=== PATIENT | male | born 1990 | race Caucasian/White ===

== ENCOUNTER → 2019-08-07 11:45 | Outpatient (CLI) | payer SELFPAY ==
[2018-08-08 10:41] VITALS: BMI 28.8
[2019-08-07 12:02] VITALS: BP 111/75; PULSE 79; RESP 16; TEMP 36.3; O2SAT 96; BMI 28.0
--- NOTE | 2019-08-07 12:41 | HTC.HP3 ---
Problem List (1) Von Willebrand disease, type I Status: Acute Subjective Date of Service:: 08/07/19 Chief Complaint: F/u for VWD type 1 History of Present Illness: 29y.o.man with VWD type I, comes for follow up. Has had no bleeding in the last year. Health History: Past Medical History Past Medical History: Bleeding disorder Past Medical History (Last Updated 08/08/18 @ 10:40 by Jennifer Emanuel) Anxiety (Acute) Social History Social History: No changes Smoking Status Former smoker Allergies/Adverse Reactions: Allergy/AdvReac Type Severity Reaction Status Date / Time aspirin AdvReac Severe BLEEDING Verified 08/08/18 10:40 Risk Factors Social History Social History: No changes Smoking Status Former smoker Tobacco Risk Data: Tobacco Risk Smoking Status Former smoker Type of tobacco: Smokeless tobacco usage: Current Items/Day: Year started: Years used: 10 Counseled to quit/cut down: Reason for no counseling performed: Reason for no pharmacotherapy: Tobacco use comments: Passive smoke exposure: No Substance Risk Drug use: No Caffeine use [drinks/day]: Alcohol use: No Type of alcohol: Drinks per day: Has patient felt the need to cut down: Has the patient been annoyed by complaints: Has the patient felt guilty about drinking: 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: Comments: Review of Systems Constitutional:: Denies: Fever, Sweats, Weight loss, Appetite change, Chills Cardiovascular:: Denies: Chest pain, Palpitations, Dyspnea on exertion, Orthopnea, PND, Shortness of breath Respiratory: Denies: Cough, Hemoptysis, Shortness of Breath, Wheezing Gastrointestinal:: Denies: Abdominal pain, Nausea, Vomiting, Diarrhea, Constipation, Hematochezia Genitourinary: Denies: Dysuria, Hematuria, 15, Flank pain Musculoskeletal:: Denies: Back pain, Myalgia, Arthralgia Skin: Denies: Rash, Skin Changes, Wounds Neurological:: Denies: Headache, Dizziness, Visual changes, Tinnitus, Hearing loss Psychiatric: Denies: Anxiety, Depression, Homicidal Ideations, Suicidal Ideations Vital Signs Height 5 ft 6 in Weight: 78.953 kg Weight in Pounds 174.1 lbs Pulse Ox 96 Temperature 97.3 F Pulse Rate 79 Respiratory Rate 16 Blood Pressure 111/75 Blood Pressure Position Standing - Physical Exam General: Alert, Oriented x3, No apparent distress HEENT: Atraumatic, PERRLA, EOMI, Normocephalic Oropharynx:: Dry mucosa Neck:: Supple, Trachea midline. Negative for: JVD, bilateral Cardiac:: Regular rate, Regular rhythm, Normal S1, Normal S2. Negative for: Murmur Lungs: Clear to auscultation, Excusion symmetrical. Negative for: Rhonchi, Wheezes Abdomen:: Bowel sounds x 4, Soft, Non-tender, Non-distended. Negative for: Hepatosplenomegaly Extremities:: Negative for: Cyanosis, Edema Neurological: Neuro grossly intact Skin:: Negative for: Lesions, Rash, Petechiae, Ecchymosis Psychiatric:: Appropriate affect, Euthymic Lymphatics:: Negative for: Cervical lymphadenopathy, Supraclavicular lymphadenopathy, Axillary lymphadenopathy Therapy ROM Screening - Subjective Subjective:: Pt reports no concerns at this time. - Objective Right shoulder flex:: 160 Left shoulder flex:: 165 Right shoulder extension:: 40 Left shoulder extension:: 45 Right elbox flex/ext:: 140/0 Left elbox flex/ext:: 140/0 Right elbow circumference:: 26cm Left elbow circumference:: 25cm Right forearm sup/pron:: WNL Left forearm sup/pron:: WNL Right knee flexion:: 120 Left knee flexion:: 120 Right knee circumference:: 35cm Left knee circumference:: 36cm Right ankle dorsiflexion:: 25 Left ankle dorsiflexion:: 25 Right ankle Plan-flex:: 45 Left ankle Plan-flex:: 45 Right ankle circumference:: NT boot on Left ankle circumference:: Nt boots on Right hip flexion:: 90 Left hip flexion:: 90 Right hip extension:: 25 Left hip extension:: 25 - Assessment Assessment:: Pt demo all ROM WNL no concerns at this time Assessment and Plan Von Willebrand Disease, Clinically stable. Plan is to continue expectant management. Use Stimate as needed. RTC 1 yr. Primary Care Provider: Jere Patino Referring Provider:
== END ==
PROVIDERS: Family Provider Family Medicine; PCP Family Medicine; Visit Provider Internal Medicine Medical Oncology
DX: D68.0 Von Willebrand disease (principal)